=== PATIENT | male | born 1955 | race Caucasian/White ===

== ENCOUNTER 2023-11-04 07:24 | Outpatient (CLI) | payer MEDICARE, OTHER, SELFPAY ==
--- NOTE | ~2023-11-04 | US_ITS ---
EXAMINATION: US aorta [facility] scrn DATE: 11/04/2023 08:09 ELECTRICAL INSTRUMENT REPAIRER INDICATION: Abdominal aortic aneurysm. Hypertension. TECHNIQUE: Grayscale, color Doppler, and pulsed Doppler images of the aorta and common iliac arteries were obtained. COMPARISON: None. FINDINGS: The proximal aorta measures 2.9 cm greatest sagittal dimension. The mid aorta measures 3 cm greatest sagittal dimension. The distal aorta measures 3 cm greatest sagittal dimension. The right common inte rnal iliac artery measures 1.7 cm. The left common iliac artery measures 2 cm greatest. IMPRESSION: 1. Fusiform infrarenal abdominal aortic aneurysm measures measuring 3 cm. Reviewed, dictated and finalized at location L. TRICAL INSTRUMENT REPAIRER
== END 2023-11-04 07:25 | disposition home or self-care (01) ==
PROVIDERS: Visit Provider Nurse Practitioner Family
DX: I71.43 Infrarenal abdominal aortic aneurysm, without rupture (principal); Z13.6 Encounter for screening for cardiovascular disorders
CPT/HCPCS: 76706

== ENCOUNTER 2023-11-25 11:27 | Emergency (ER) | payer MEDICARE, OTHER, SELFPAY ==
[2023-11-25 11:54] VITALS: BP 107/81; PULSE 81; RESP 16; TEMP 37.1; O2SAT 94
--- NOTE | 2023-11-25 12:20 | ED.URI ---
HPI - URI/Sore Throat General Chief Complaint: Upper Respiratory Infection Stated Complaint: Cold symptoms Time Seen by Provider: 11/25/23 11:32 Source: patient Mode of arrival: ambulatory Limitations: no limitations History of Present Illness HPI Narrative: Lemuel is a 68-year-old male patient presenting to the clinic today with complaints cough, congestion, scratchy throat, and fatigue x3 days. He denies any fever, chills, body aches, shortness of breath or chest pain MD elicited complaint: cough, sore throat, rhinorrhea and nasal congestion Related Data Home Medications Medication Instructions Recorded Confirmed amlodipine 5 mg tablet 5 mg DIRECTED 11/25/23 11/25/23 lisinopril 20 1 tablet DIRECTED 11/25/23 11/25/23 mg-hydrochlorothiazide 25 mg tablet Allergies Allergy/AdvReac Type Severity Reaction Status Date / Time No Known Allergies Allergy Verified 11/25/23 11:46 Review of Systems Review of Systems: Pertinent positives per HPI. Patient denies any fever, chills, rash, headache, visual changes, dizziness, shortness of breath, chest pain, palpitations, nausea, vomiting, diarrhea, constipation, abdominal pain, or any urinary issues. PMFSH Comments At the time of my signature, I reviewed and agree with the nursing past medical, surgical, social, and family history. There is no relevant family history pertinent to the patient complaint. Exam Narrative: General: Well-developed, well nourished, in no apparent distress Head: Normocephalic, atraumatic Eyes: Pupils equally round and reactive to light bilaterally, EOM intact, sclera and conjunctive clear, no discharge, lids normal Ears: TMs intact and clear, ear canals clear, no drainage, grossly hearing normal. Nose: Nares patent, no discharge, no inflammation, no sinus tenderness. Mouth: Oral pharynx without lesions or masses, good dentition, MMM. Neck: Supple, trachea midline, no enlargement of anterior or posterior cervical nodes, no thyroid masses or goiter palpable. Cardio: Regular rate and rhythm, s1 and s2 normal, no murmur appreciated. Resp: Clear to auscultation bilaterally, no rhonchi, rales, wheezing or rubs Course Course Emergency Course: Portions of this record may have been created with voice recognition software. Level of Care: Express Care Visit Vital Signs Vital signs: Vital Signs Temperature 37.1 C 11/25/23 11:54 Pulse Rate 81 11/25/23 11:54 Respiratory Rate 16 11/25/23 11:54 Blood Pressure 107/81 11/25/23 11:54 Pulse Oximetry 94 11/25/23 11:54 Temperature 37.1 C 11/25/23 11:54 Pulse Rate 81 11/25/23 11:54 Respiratory Rate 16 11/25/23 11:54 Blood Pressure 107/81 11/25/23 11:54 Pulse Oximetry 94 11/25/23 11:54 Vital signs reviewed MDM - URI/Sore Throat Differential Diagnosis Differential diagnosis: Likely sinusitis, viral infection, influenza and pharyngitis Lab Data Labs: Lab Results 11/25/23 Range/Units 11:52 POC SARS CoV-2 Ag Positive (Negative) Influenza A Screen Negative Reference Range: Negative Influenza B Screen Negative Reference Range: Negative Discharge Plan Discharge Clinical Impression: COVID-19 Patient Disposition: Home, Self-Care Condition: Stable Instructions: Antibiotic Form, COVID-19 (Coronavirus Disease 2019) (ED), How to Recover from COVID-19 at Home (ED) Additional Instructions: COVID testing was positive in the clinic today. Will need to isolate for 5 days. May come out of isolation on November 28. Recommend wearing a mask for 5 additional days after isolation Take prescription medications only as prescribed-Paxlovid Increase fluids and stay well hydrated Tylenol/motrin for pain/fever Flonase and OTC antihistamines as directed Vicks vapor rub to open sinuses Sinus rinses
== END 2023-11-25 12:33 | disposition home or self-care (01) ==
PROVIDERS: Emergency Provider Nurse Practitioner Family; PCP Nurse Practitioner Family
DX: U07.1 COVID-19 (principal); Z79.899 Other long term (current) drug therapy
CPT/HCPCS: 87426; 87804; 99213; C9803; G0463